=== PATIENT | male | born 1980 | race Caucasian/White ===

== ENCOUNTER 2021-12-25 15:11 | Outpatient (CLI) | payer BC, SELFPAY ==
--- NOTE | 2021-12-25 15:17 | CT_ITS ---
WS: [id number] CT ABDOMEN AND PELVIS WITH CONTRAST HISTORY: ACUTE ABD PAIN AND FEVER TECHNIQUE: Imaging performed of the abdomen and pelvis with IV contrast. Single phase imaging of the abdomen. Coronal and sagittal reformats are submitted. All CT scans at [facility] use at [address] one of these dose optimization techniques: automated exposure control; mA and/or kV adjustment per patient size (includes targeted exams where dose is matched to clinical indication); or iterative re construction. IV CONTRAST: Omnipaque 300; 95 mL IV. Oral contrast: No DLP: 1448.83 mGy.cm COMPARISON: None available. Lower thorax: Lung bases are clear. Heart is normal size. Small hiatal hernia. Liver/biliary system: Normal size with no intrahepatic dilatation. Gallbladder: Normal. No gallstones or wall thickening. No pericholecystic fluid. Pancreas: Normal size pancreas and pancreatic duct. No adjacent inflammation. Spleen: Normal size spleen. No mass or infarct. Tiny hypodensity inferior spleen. Adrenal glands: Normal. Right kidney: Normal. Left kidney: Normal. Aorta: Normal. Lymphadenopathy: None. Free fluid: Small amount of free fluid in the pelvis. GI tract: Normally distended stomach. There is a focal area of significant inflammation involving the transverse colon to the LEFT of midline. There is marked wall thickening with narrowing of the lumen of what appears to be a large diverticulum measuring 2.2 x 3.0 cm with mixed density. There is a tin y focus of air within the adjacent fat which may be a contained perforation within the fat but this d oes appear extraluminal. There is a large amount of inflammation surrounding the transverse colon. Mu cosal and submucosal edema. The inflammation extends to the greater curvature the stomach and there i s some very mild inflammation also within the greater curvature of the stomach. Normal appendix. Additional numerous diverticula within the descending and sigmoid colon. Abdominal wall: Unremarkable abdominal wall. No hernia. Pelvis: Free fluid. No adenopathy. Bones: Unremarkable. CT/CT abdomen pelvis w con* [id number] IMPRESSION: 1. Focal area of severe, acute inflammation involving 9 cm of the distal trans verse colon with an associated mixed density collection measuring 3.0 x 2.2 cm. May represent a large diverticulum. Foci of air adjacent to this mixed density collection is not definitely contained within the lumen. Perforation may be co ntained within the adjacent pericolonic fat. There is also edema within the gre ater curvature of the stomach. These changes may all be related to acute divert iculitis but underlying neoplasm should be considered along with the contained perforation. Recommend surgical evaluation and close observation. 2. Small amount of free fluid in the pelvis. 3. Additional numerous diverticula in the descending and sigmoid colon. Notified Yong Hawk MD at 12/25/2021 4:23 PM.
== END 2021-12-25 15:12 | disposition home or self-care (01) ==
PROVIDERS: Visit Provider Family Medicine
DX: K57.30 Diverticulosis of large intestine without perforation or abscess without bleeding (principal); R10.9 Unspecified abdominal pain; R50.9 Fever, unspecified
CPT/HCPCS: 74177; Q9967